=== PATIENT | female | born 1970 | race American Indian/Alaskan Native ===

== ENCOUNTER 2016-04-07 13:52 | Emergency (ER) | payer SELFPAY ==
[2016-04-07 14:34] VITALS: BP 137/85
--- NOTE | 2016-04-07 14:38 | Emergency Department Report ---
Chief Complaint: Abdominal Pain Stated Complaint: LOWER ABD/VAG PAIN Time Seen by Provider: 04/07/16 14:35 - HPI History of Present Illness: 46-year-old female comes 1 with lower abdominal pain and dysuria 4 days. Patient denies any nausea no vomiting no fever no chills. Past medical history of migraines only. LMP 2004 status post hysterectomy - Exam Vital Signs: Vital Signs 04/07/16 14:23 Temperature 98.2 F Pulse Rate 65 Respiratory 16 Rate Blood Pressure 137/85 O2 Sat by Pulse 100 Oximetry Physical Exam: Is alert and oriented 3 pelvic tenderness. MSE screening note: Focused history and physical exam performed. Due to findings the following was ordered: CBC UA ordered. Patient be evaluated the main ER ED Disposition for MSE Condition: Stable Instructions: Abdominal Pain (ED)
[2016-04-07 15:01] LABS: Hematocrit 42.5 % (30.3-42.9); Hemoglobin 13.7 gm/dl (10.1-14.3); Mean Corpuscular HGB Conc 32 % (30-34); Mean Corpuscular Hemoglobin 28 pg (28-32); Mean Corpuscular Volume 86 fl (79-97); Platelet Count 316 K/mm3 (140-440); Red Blood Count 4.95 M/mm3 (3.65-5.03); Red Cell Distribution Width 13.4 % (13.2-15.2); White Blood Count 7.2 K/mm3 (4.5-11.0)
[2016-04-07 16:41] LABS: Bacteria,Urine 2+ /HPF (Negative); Bilirubin,Urine NEG (Negative); Blood,Urine SM (Negative); Ketones,Urine NEG (Negative); Leukocyte Esterase,Urine LG (Negative); Mucus,Urine FEW /HPF; Nitrite,Urine NEG (Negative); Protein,Urine <15 mg/dL mg/dL (Negative); Urobilinogen,Urine < 2.0 mg/dL (<2.0)
[2016-04-07 16:42] LABS: WBC,Urine > 182.0 /HPF (0.0-6.0)
== END 2016-04-07 16:15 | disposition left against medical advice (07) ==
LOC: ED 13:52
DX: R10.30 Lower abdominal pain, unspecified (principal); R30.0 Dysuria; Z53.21 Procedure and treatment not carried out due to patient leaving prior to being seen by health care provider
CPT/HCPCS: 36415; 81001; 85027